=== PATIENT | female | born 1990 | race Two or more races ===

== ENCOUNTER 2019-04-13 11:57 | Inpatient (IN) | payer OTHER ==
[~2019-04-13] VITALS: Ht 152.4 cm; Wt 99.5 kg
[2019-04-13 12:14] VITALS: BP 114/65
[2019-04-13] MEDS ORDERED: OXYTOCIN 30U/ 0.9% NaCL 500ML 500 ML IV ONE (20:25)
[2019-04-13] MEDS ORDERED: LACTATED RINGERS 1,000 ML IV SCH (20:25)
[2019-04-13] MEDS ORDERED: SODIUM CITRATE/CITRIC ACID 30 ML UDC PO PRN (20:30)
[2019-04-13] MEDS ORDERED: CALCIUM CARBONATE 500 MG TAB.CHEW PO PRN (20:30)
[2019-04-13] MEDS ORDERED: ONDANSETRON 2MG/ML, 2ML IVPush PRN (20:30)
[2019-04-13] MEDS ORDERED: ALUMINUM/MAG/SIMETHICONE 30 ML UDC PO PRN (20:30)
[2019-04-13] MEDS ORDERED: SODIUM CHLORIDE FLUSH 10ML SYR IVF PRN (20:30)
[2019-04-13] MEDS ORDERED: METOCLOPRAMIDE 5 MG/ML, 2ML IVPush PRN (20:30)
[2019-04-13] MEDS ORDERED: FENTANYL PF 100 MCG/2ML IV PRN (20:30)
[2019-04-13] MEDS ORDERED: FENTANYL PF 100 MCG/2ML IVPush PRN (20:30)
[2019-04-13] MEDS ORDERED: MISOPROSTOL 25 MCG TABLET ONE (20:41)
[2019-04-13] MEDS ORDERED: OXYTOCIN 30U/ 0.9% NaCL 500ML 500 ML ONE (21:22)
[2019-04-13] MEDS ORDERED: PREN1TAB60 PO (22:29)
[2019-04-13 22:33] VITALS: BP 133/67
[2019-04-13] MEDS: MISOPROSTOL 25 MCG TABLET VG PRN (22:40)
[2019-04-14] MEDS ORDERED: MISOPROSTOL 25 MCG TABLET ONE (05:41)
[2019-04-14] MEDS: MISOPROSTOL 25 MCG TABLET VG PRN (05:50)
[2019-04-14] MEDS ORDERED: MISOPROSTOL 200 MCG TABLET ONE ×2 (09:32→09:52)
[2019-04-14] MEDS ORDERED: MISOPROSTOL 100 MCG TABLET ONE (09:33)
[2019-04-14] MEDS ORDERED: FENTANYL PF 100 MCG/2ML ONE (09:36)
[2019-04-14] MEDS ORDERED: MISOPROSTOL 200 MCG TABLET PR ONE (15:00)
== END 2019-04-14 15:47 | disposition home or self-care (01) | DRG 779 ==
LOC: LDOP 11:57 → OBSVTOIN 14:00 → LDIP 14:00 → UNDOADMOB 16:34 → LDIP 21:03
PROVIDERS: ADMIT Obstetrics & Gynecology; ATTEND Obstetrics & Gynecology
PROC: 10E0XZZ Delivery of Products of Conception, External Approach (ICD-10-PCS; principal; 2019-04-13)
PROC: 3E0P7VZ Introduction of Hormone into Female Reproductive, Via Natural or Artificial Opening (ICD-10-PCS; 2019-04-13)
PROC: 3E033VJ Introduction of Other Hormone into Peripheral Vein, Percutaneous Approach (ICD-10-PCS; 2019-04-13)
DX: O03.9 Complete or unspecified spontaneous abortion without complication (principal); O60.12X0 Preterm labor second trimester with preterm delivery second trimester, not applicable or unspecified; O42.012 Preterm premature rupture of membranes, onset of labor within 24 hours of rupture, second trimester; E28.2 Polycystic ovarian syndrome; Z3A.17 17 weeks gestation of pregnancy; E66.01 Morbid (severe) obesity due to excess calories; O99.212 Obesity complicating pregnancy, second trimester; O99.282 Endocrine, nutritional and metabolic diseases complicating pregnancy, second trimester
CPT/HCPCS: 36415; 84112; 86850; 86900; 87070; 87075; 87205; 88300; 88305; G0378; J2590

== ENCOUNTER 2021-02-04 05:56 | Inpatient (IN) | payer OTHER ==
[~2021-02-04] VITALS: Ht 152.4 cm; Wt 91.8 kg
[~2021-02-04 05:56] MED LIST: PREN1TAB60 PO
[2021-02-04] MEDS ORDERED: CEFAZOLIN PMX 1GM/50ML IVPB ONE (06:30)
[2021-02-04] MEDS ORDERED: CEFAZOLIN PMX 1GM/50ML 50 ML IV ONE (06:30)
[2021-02-04] MEDS ORDERED: LACTATED RINGERS 1,000 ML IV SCH (06:30)
[2021-02-04 06:40] VITALS: BP 106/56
[2021-02-04] MEDS ORDERED: METOCLOPRAMIDE 5 MG/ML, 2ML ONE (07:10)
[2021-02-04] MEDS ORDERED: SODIUM CITRATE/CITRIC ACID 15 ML UDC ONE (07:10)
[2021-02-04 07:37] LABS: BASOPHILS % (AUTO) 0 % (0-1); EOSINOPHILS % (AUTO) 1 % (1-7); LYMPHOCYTES % (AUTO) 23 % (22-44); MEAN CORPUSCULAR HEMOGLOBIN 31.7 pg (27.0-34.8); MEAN CORPUSCULAR HGB CONC 34.7 g/dL (32.4-35.8); MEAN PLATELET VOLUME 8.2 fL (7.4-10.4); MONOCYTES % (AUTO) 5 % (2-9); NEUTROPHILS % (AUTO) 71 % (42-75); PLATELET COUNT 240 x10^3/uL (130-400); RED BLOOD COUNT 3.93 x10^6/uL (3.82-5.3); RED CELL DISTRIBUTION WIDTH 12.8 % (9.6-15.2)
[2021-02-04] MEDS ORDERED: SODIUM CHLORIDE FLUSH 0.9%, 20 ML ONE (08:28)
[2021-02-04] MEDS ORDERED: CEFAZOLIN 1,000 MG ONE (08:28)
[2021-02-04] MEDS ORDERED: ACETAMINOPHEN 325 MG TABLET PO PRN (10:30)
== END 2021-02-04 11:35 | disposition home or self-care (01) | DRG 819 ==
LOC: LDIP 05:56 → UNDOADMOB 05:56 → OBSVTOIN 05:56 → UNDODISOB 11:35 → LDIP 02-12 15:40 → UNDOADMOB 02-12 15:40
PROVIDERS: ADMIT Obstetrics & Gynecology Maternal & Fetal Medicine; ATTEND Obstetrics & Gynecology Maternal & Fetal Medicine
PROC: 0UVC7ZZ Restriction of Cervix, Via Natural or Artificial Opening (ICD-10-PCS; principal; 2021-02-04)
DX: O34.32 Maternal care for cervical incompetence, second trimester (principal); O26.872 Cervical shortening, second trimester; Z3A.18 18 weeks gestation of pregnancy; Z20.822 Contact with and (suspected) exposure to COVID-19
CPT/HCPCS: 36415; 85025; 87635; G0378; J0690

== ENCOUNTER 2021-02-19 17:35 | Outpatient (CLI) | payer OTHER ==
[~2021-02-19] VITALS: Ht 152.4 cm; Wt 92.7 kg
[2021-02-19 18:58] LABS: MICROSCOPIC INDICATED
== END 2021-02-19 20:10 | disposition home or self-care (01) ==
LOC: LDOP 17:35
PROVIDERS: ATTEND Obstetrics & Gynecology
DX: O26.892 Other specified pregnancy related conditions, second trimester (principal); R10.9 Unspecified abdominal pain; Z3A.20 20 weeks gestation of pregnancy
CPT/HCPCS: 81001; 87086; 99211; G0463